=== PATIENT | female | born 1960 | race Caucasian/White ===

== ENCOUNTER 2022-09-26 09:44 | Observation (INO) | payer BC ==
[2022-09-19 15:27] LABS: BASOPHILS # (AUTO) 0.1 X10'3 (0-0.2); EOSINOPHILS # (AUTO) 0.1 X10'3 (0-0.9); LYMPHOCYTES # (AUTO) 1.4 X10'3 (1.1-4.8); MEAN CORPUSCULAR VOLUME 87.6 FL (78-98); PRE OP HEMATOCRIT 41.3 % (35.0-45.0); PRE OP HEMOGLOBIN 13.7 g/dL (12.0-16.0); RED BLOOD COUNT 4.71 X10'6 (4.20-5.60)
[2022-09-19 15:28] LABS: ALBUMIN 3.7 G/DL (3.4-5.0); ALKALINE PHOSPHATASE 73 IU/L (46-116); BLOOD UREA NITROGEN 18 MG/DL (7-18); BUN/CREATININE RATIO 23.1 (10.0-20.0); CALCIUM 9.3 MG/DL (8.5-10.1); CHLORIDE 100 MMOL/L (99-107); CREATININE 0.78 MG/DL (0.40-0.90); PRE OP ALT 28 U/L (30-65); PRE OP ANION GAP 7 (8-16); PRE OP AST 17 U/L (10-37); PRE OP BILIRUB, TOTAL 0.3 MG/DL (0.0-1.0); PRE OP GLUCOSE 98 MG/DL (70-104); PRE OP SODIUM 138 MMOL/L (135-145); TOTAL CARBON DIOXIDE 31.2 MMOL/L (24-32); TOTAL PROTEIN 7.5 G/DL (6.4-8.2); eGFR 75 ML/MIN
[2022-09-19 15:29] LABS: BASOPHILS % (AUTO) 1.1 % (0-1); EOSINOPHILS % (AUTO) 1.8 % (0-6); LYMPHOCYTES % (AUTO) 29.4 % (21-51); MEAN CORPUSCULAR HEMOGLOBIN 29.1 PG (27.0-31.0); MEAN CORPUSCULAR HGB CONC 33.2 g/dL (33.0-36.5); MEAN PLATELET VOLUME 9.5 FL (7.4-10.4); MONOCYTES # (AUTO) 0.3 X10'3 (0-0.9); MONOCYTES % (AUTO) 6.8 % (2-12); NEUTROPHILS # (AUTO) 2.9 X10'3 (1.8-7.7); NEUTROPHILS % (AUTO) 60.9 % (42-75); PRE OP PLATELET COUNT 301 X10'3 (140-440); RED CELL DISTRIBUTION WIDTH 14.5 % (11.5-14.5)
[2022-09-19 15:30] LABS: PRE OP POTASSIUM 3.3 MMOL/L (3.4-5.1)
[2022-09-26] VITALS (38 sets, daily range): BP systolic 108–151; BP diastolic 45–97
[~2022-09-26] VITALS: Ht 165.1 cm; Wt 136.4 kg
[~2022-09-26 09:44] MED LIST: BUPIVAcaine/PF 2.5 mg/ml (0.25%) 30ml vial ONE; HYDR12.55 PO; LEVO125T PO; MAGNESIUM GLYCINATE PO; [UNRECOGNIZED DRUG - OTHER] PO; cefazolin 2gm/D5W 100mL 100 ML IV ONE; famotidine 20mg tablet PO ONE; methylene blue (5mg/ml) 50mg/10ml ampul IV ONE; ringers solution, lacted 1,000 ML IV SCH
[2022-09-26] MEDS ORDERED: fentaNYL/PF 50MCG/1 ML 2ML syringe ONE (10:17)
[2022-09-26] MEDS ORDERED: ondansetron/PF 4mg/2ml inj ONE (10:18)
[2022-09-26] MEDS ORDERED: propofol inj 20 ML IV ONE ×2 (10:18)
[2022-09-26] MEDS ORDERED: LIDOcaine 2% (20mg/ml) 5ml vial ONE (10:18)
[2022-09-26] MEDS ORDERED: rocuronium 10mg/ml inj IV ONE (10:18)
[2022-09-26] MEDS ORDERED: sugammadex 200mg/2ml injection IV ONE (10:20)
[2022-09-26] MEDS ORDERED: morphine 2 MG/ML inj. syringe IV PRN (10:25)
[2022-09-26] MEDS ORDERED: fentaNYL/PF 50MCG/1 ML 2ML syringe IV PRN ×2 (10:25)
[2022-09-26] MEDS ORDERED: labetalol 20mg/4ml (5mg/ml) syringe IV PRN (10:25)
[2022-09-26] MEDS ORDERED: ondansetron/PF 4mg/2ml inj IV PRN ×2 (10:25→16:15)
[2022-09-26] MEDS ORDERED: ringers solution, lacted 1,000 ML IV SCH (10:25)
[2022-09-26] MEDS ORDERED: hydrALAZINE 20mg/ml inj. IV PRN (10:25)
[2022-09-26] MEDS ORDERED: morphine 4 MG/ML inj SYRINge IV PRN (10:25)
[2022-09-26] MEDS ORDERED: dexamethasone sod phosphate 10mg/ml inj ONE (10:30)
[2022-09-26] MEDS ORDERED: desflurane 240ml liquid inh. IH ONE (10:30)
[2022-09-26] MEDS ORDERED: acetaminophen 1,000mg/100ml IV 100 ML IV ONE (10:54)
--- NOTE | 2022-09-26 12:44 | NUR ---
Received from OR via [facility] IN STABLE CONDITION , accompanied by Anesthesiologist and OB TECH report given by OB TECH AND Anesthesiolgist. Addendum: 09/26/22 at 1307 by Sarah Wall RN Amended: Links added.
--- NOTE | 2022-09-26 15:30 | NUR ---
DESPITE HAVING THE PATIENT WORK WITH THE IS FOR THE LAST TWO AND A HALF HOURS UNABLE TO KEEP HE O2 SATS ABOVE 90%. I WILL INFORM DR. LOUIS WHEN SHE COMES OUT OF SURGERY.
[2022-09-26] MEDS ORDERED: magnesium 4gm in 100ml NS 100 ML IV PRN (16:15)
[2022-09-26] MEDS ORDERED: potassium Cl 40MEQ/1/2NS 520ml 520 ML IV PRN (16:15)
[2022-09-26] MEDS ORDERED: acetaminophen 325mg tablet PO PRN (16:15)
[2022-09-26] MEDS ORDERED: potassium Cl 20 mEq SR tablet PO PRN (16:15)
[2022-09-26] MEDS ORDERED: magnesium hydroxide 30ml (MOM) UD suspension PO PRN (16:15)
[2022-09-26] MEDS ORDERED: magnesium Cl slow-release 64mg tablet PO PRN (16:15)
[2022-09-26] MEDS ORDERED: magnesium 2GM in 50ml NS 50 ML IV PRN (16:15)
[2022-09-26] MEDS ORDERED: mag hydrox/Alum hydrox/simeth 30ml oral suspension PO PRN (16:15)
--- NOTE | 2022-09-26 17:04 | NUR ---
PATIENT DISCHARGED FROM PACU IN STABLE CONDITION AFTER REPORT GIVEN TO RN TAKING OVER PATIENTS CARE. PATIENT TRANSFERRED TO ROOM 4016 VIA GURNEY WITH 1L O2 NC BY NOA. Addendum: 09/26/22 at 1726 by Sarah Wall RN Amended: Links added.
--- NOTE | 2022-09-26 17:10 | NUR ---
Patient in room ORTHO 4016. I have received report from christian MORENO from recovery and had the opportunity to ask questions and assume patient care.
[2022-09-26] MEDS ORDERED: HYDROcodone/acetaminophen 10/325mg tab PO PRN (17:40)
--- NOTE | 2022-09-26 17:40 | NUR ---
PAGER ID: [phone] MESSAGE: [id number]- Sb, H- Patient is painful and no meds available. October I pls have some. PIPPA Velasquez [phone]
--- NOTE | 2022-09-26 18:15 | NUR ---
Patient in room ORTHO 4016. I have received report from Eva GUTIÉRREZ and had the opportunity to ask questions and assume patient care.
--- NOTE | 2022-09-26 18:24 | NUR ---
Problems reprioritized. Patient report given, questions answered & plan of care reviewed with Sita MORENO.
[2022-09-26] MEDS: K and/or MAG REPLACEMENT MC SCH (20:00)
[2022-09-26] MEDS: docusate sod 100mg capsule PO SCH (21:03)
[2022-09-26] MEDS: potassium Cl 20 mEq SR tablet PO PRN (21:04)
[2022-09-27 00:45] VITALS: BP 124/64
[2022-09-27] MEDS: potassium Cl 20 mEq SR tablet PO PRN ×2 (01:31→05:20)
[2022-09-27 02:00] VITALS: BP 124/61
[2022-09-27 04:45] VITALS: BP 130/70
--- NOTE | 2022-09-27 05:46 | NUR ---
Problems reprioritized. Patient report given, questions answered & plan of care reviewed with Virginia MORENO.
--- NOTE | 2022-09-27 05:58 | NUR ---
Agree with Karen Baird RN's orientee's assessment,interventions and medication administrations.
[2022-09-27 06:00] VITALS: BP 99/63
--- NOTE | 2022-09-27 06:32 | NUR ---
Patient in room ORTHO 4016. I have received report from Cira and had the opportunity to ask questions and assume patient care.
[2022-09-27 07:34] LABS: ALBUMIN 3.3 G/DL (3.4-5.0); ANION GAP 6 (8-16); BLOOD UREA NITROGEN 10 MG/DL (7-18); BUN/CREATININE RATIO 11.2 (10.0-20.0); CALCIUM 8.9 MG/DL (8.5-10.1); CHLORIDE 96 MMOL/L (99-107); CREATININE 0.89 MG/DL (0.40-0.90); GLUCOSE 128 MG/DL (70-104); MAGNESIUM 1.8 MG/DL (1.5-2.4); POTASSIUM 4.2 MMOL/L (3.5-5.1); SODIUM 134 MMOL/L (135-145); TOTAL CARBON DIOXIDE 31.7 MMOL/L (24-32); eGFR 64 ML/MIN
[2022-09-27] MEDS: docusate sod 100mg capsule PO SCH (07:34)
[2022-09-27 07:40] LABS: HEMOGLOBIN 13.2 g/dl (12.0-16.0); WHITE BLOOD COUNT 9.9 X10'3 (4.5-11.0)
[2022-09-27 07:44] LABS: BASOPHILS % (AUTO) 0.2 % (0-1); EOSINOPHILS % (AUTO) 0.1 % (0-6); LYMPHOCYTES # (AUTO) 0.8 X10'3 (1.1-4.8); LYMPHOCYTES % (AUTO) 8.5 % (21-51); MEAN CORPUSCULAR HEMOGLOBIN 29.1 PG (27.0-31.0); MEAN CORPUSCULAR VOLUME 88.2 FL (78-98); MEAN PLATELET VOLUME 9.7 FL (7.4-10.4); MONOCYTES # (AUTO) 0.5 X10'3 (0-0.9); MONOCYTES % (AUTO) 4.7 % (2-12); NEUTROPHILS # (AUTO) 8.5 X10'3 (1.8-7.7); NEUTROPHILS % (AUTO) 86.5 % (42-75); PLATELET COUNT 291 X10'3 (140-440); RED BLOOD COUNT 4.53 X10'6 (4.20-5.60); RED CELL DISTRIBUTION WIDTH 14.5 % (11.5-14.5)
[2022-09-27] MEDS ORDERED: enoxaparin 40mg/0.4ml syringe SUBCUT SCH (08:00)
[2022-09-27] MEDS: K and/or MAG REPLACEMENT MC SCH (08:00)
[2022-09-27 10:00] VITALS: BP 135/76
[2022-09-27] MEDS ORDERED: LEVO-65 PO (12:51)
--- NOTE | 2022-09-27 13:45 | NUR ---
Reviewed discharge instructions with patient. Patient is alert, oriented and expresses a readiness to discharge home. Patient does not have any c/o pain. Patient was dressed and wheeled downstairs to be driven home by her friend. All of patient's belongings were sent with patient.
== END 2022-09-27 13:45 | disposition home or self-care (01) ==
LOC: PAS 09:44 → ORTHO 4S 16:11
PROVIDERS: ADMIT Family Medicine; ATTEND Surgery
DX: C50.911 Malignant neoplasm of unspecified site of right female breast (principal); J96.01 Acute respiratory failure with hypoxia; I10 Essential (primary) hypertension; E03.9 Hypothyroidism, unspecified; Z85.3 Personal history of malignant neoplasm of breast; Z79.899 Other long term (current) drug therapy
CPT/HCPCS: 19301; 36415; 38525; 71045; 76098; 76998; 80048; 80053; 82948; 83735; 85025; 87081; 93005; 96372; 96374; G0378; J0131; J0690; J1100; J1650; J2405; J2704; J3010; J3490; J7120; Q9968; A4215; A4615; A4618; A6213; A6258; A7000